=== PATIENT | male | born 1955 | race Caucasian/White ===

== ENCOUNTER → 2019-09-18 10:25 | Outpatient (CLI) | payer BC, SELFPAY ==
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
--- NOTE | 2019-09-18 11:10 | MRI_ITS ---
STUDY: MRI LUMBAR SPINE WITHOUT CONTRAST REASON FOR EXAM: Male, 64 years old. Back pain radiating into the right leg for fifteen years TECHNIQUE: Standardized fat and water weighted pulse sequences were obtained in the sagittal and axial planes. COMPARISON: None FINDINGS: Lumbar spine is aligned. Diffuse marrow is normal. There is a 6 mm somewhat lobulated subchondral L1 low T1 low T2 high STIR signal finding, possibly early subchondral degenerative change, less likely lesion. There is an endplate connected degenerative change in the superior L4. Paraspinous soft tissues and SI joints are normal. Conus medullaris terminates at T12 with normal cauda equina. There is minor canal stenosis at L3-L4 without functional thecal sac compression. There are mild bilateral five S1 foraminal stenoses. There is mild left L4-L5 lateral recess stenosis. Right recess is patent. MRI/Spine Lumbar (Routine) IMPRESSION: 1. Presumed mild degenerative change. 2. Mild left L4-L5 lateral recess stenosis. 3. No thecal sac stenosis. Electronically Signed: Ronny Rosado, at 19:26 EDT Tel , Service support ,
== END ==
PROVIDERS: PCP Family Medicine; Referring Provider Anesthesiology Pain Medicine; Visit Provider Anesthesiology Pain Medicine
DX: M54.9 Dorsalgia, unspecified (principal); M79.604 Pain in right leg
CPT/HCPCS: 70030; 72148

== ENCOUNTER 2020-05-06 15:28 | Outpatient (RCR) | payer BC, SELFPAY ==
[2014-01-18 06:43] VITALS: BMI 29.2
[2020-05-06] MEDS: COVID-19 VACC, MRNA(PFIZER)/PF 30 MCG/0.3 ML SYRINGE IM (15:03)
[2020-05-27] MEDS: COVID-19 VACC, MRNA(PFIZER)/PF 30 MCG/0.3 ML SYRINGE IM (14:30)
== END 2020-05-06 23:59 ==
LOC: IMMUN 15:28
PROVIDERS: PCP Family Medicine; Referring Provider Family Medicine; Visit Provider Family Medicine
DX: Z23 Encounter for immunization (principal)
CPT/HCPCS: 0001A; 0002A; 91300

== ENCOUNTER → 2024-01-16 | Outpatient (CLI) | payer BC, SELFPAY ==
--- NOTE | 2024-01-16 16:39 | RAD_ITS ---
HISTORY: RADICULOPATHY LUMBAR REGION. TECHNIQUE: XR Spine Lumbar 2 or 3 Views. COMPARISON: 03/25/2020. FINDINGS: VERTEBRAE: Vertebral body heights preserved. Posterior elements appear intact. ALIGNMENT: No significant anterior or posterior subluxation. Very mild thoracolumbar levocurvature. INTERVERTEBRAL DISCS: Mild degenerative endplate changes with osteophytes at multiple levels, particularly L5-S1. RAD/Lumbar Spine 2 or 3 Views IMPRESSION: No acute fracture or dislocation identified in the lumbar spine. Mild degenerative change. Electronically Signed: Maya Albert MD at 8:26 EST ,
== END | disposition home or self-care (01) ==
PROVIDERS: PCP Family Medicine; Referring Provider Anesthesiology Pain Medicine; Visit Provider Anesthesiology Pain Medicine
DX: M54.16 Radiculopathy, lumbar region (principal)
CPT/HCPCS: 72100

== ENCOUNTER → 2024-02-08 | Outpatient (CLI) | payer BC, SELFPAY ==
--- NOTE | 2024-02-08 08:00 | MRI_ITS ---
STUDY: MRI LUMBAR SPINE WITHOUT CONTRAST REASON FOR EXAM: Male, 69 years old. RT LEG RADICULOPATHY, LOWER BACK PAIN YEARS, LEG WEAKNESS TECHNIQUE: Standardized fat and water weighted pulse sequences were obtained in the sagittal and axial planes. COMPARISON: Lumbar spine radiograph January 16, 2024. MRI lumbar spine September 18, 2019. FINDINGS: T12-L1: Normal endplates. Normal disc height, hydration and morphology. Normal bilateral facet joints. Normal central canal and bilateral lateral recesses. Normal bilateral intervertebral neural foramina. Normal lumbar lordosis. There is no substantial scoliosis. Normal conus medullaris that terminates at the L1-2. L1-2: Normal endplates. Normal disc height, hydration and morphology. Normal bilateral facet joints. Normal central canal and bilateral lateral recesses. Normal bilateral intervertebral neural foramina. L2-3: Normal endplates. Normal disc height, hydration and morphology. Normal bilateral facet joints. Normal central canal and bilateral lateral recesses. Normal bilateral intervertebral neural foramina. L3-4: Mild annular bulge fluid-filled hypertrophic facets causing moderate trefoil type narrowing of the thecal sac and neural foramina. L4-5: Moderate annular bulge and hypertrophic facets causing moderate trefoil type narrowing of the thecal sac and neural foramina. Small broad-based posterior disc protrusion. L5-S1: Normal endplates. Normal disc height, hydration and morphology. Normal bilateral facet joints. Normal central canal and bilateral lateral recesses. Mild broad-based posterior bulge and moderate neural foramina narrowing, left greater than right. Normal visualized sacral ala. Normal visualized paraspinous soft tissue structures. MRI/Spine Lumbar (Routine) IMPRESSION: Mild to moderate disc bulges demonstrated interval progression as above. In particular L4-5. Multilevel bilateral neural foraminal narrowing at L3-S1. Electronically Signed: Darius Barlow MD at 15:47 EST ,
== END | disposition home or self-care (01) ==
LOC: MRI 08:17
PROVIDERS: PCP Family Medicine; Referring Provider Anesthesiology Pain Medicine; Visit Provider Anesthesiology Pain Medicine
DX: M54.16 Radiculopathy, lumbar region (principal)
CPT/HCPCS: 72148

== ENCOUNTER → 2024-03-24 | Outpatient (CLI) | payer MEDICARE, SELFPAY ==
[2024-03-25 08:02] LABS: Amphetamine Urine NEGATIVE (<1000 ng/mL); Barbiturate Urine VISTA NEGATIVE (< 200 ng/mL); Benzodiazepine Urine VISTA NEGATIVE (< 200 ng/mL); Cocaine Urine VISTA NEGATIVE (< 300 ng/mL); Ecstacy Urine VISTA POSITIVE (< 500 ng/mL); Methadone Urine VISTA NEGATIVE (< 300 ng/mL); PCP Urine VISTA NEGATIVE (< 25 ng/mL); THC Urine VISTA NEGATIVE (< 50 ng/mL); Vista UDS pH Range 6
== END | disposition home or self-care (01) ==
PROVIDERS: PCP Family Medicine; Referring Provider Anesthesiology Pain Medicine; Visit Provider Anesthesiology Pain Medicine
DX: F11.20 Opioid dependence, uncomplicated (principal)
CPT/HCPCS: 80307